=== PATIENT | female | born 1965 | race Caucasian/White ===

== ENCOUNTER 2017-05-03 18:53 | Emergency (ER) ==
[2017-05-03 18:59] VITALS: BP 178/79; TEMP 97.3; BMI 29.5
[2017-05-03 19:09] LABS: BASOPHILS # (AUTO) 0.1 K/uL (0-0.2); BASOPHILS % (AUTO) 0.6 % (0.0-3.0); EOSINOPHILS # (AUTO) 0.2 K/ul (0.0-0.7); EOSINOPHILS % (AUTO) 1.4 % (0.0-7.0); HEMATOCRIT 37.2 % (37.0-47.0); HEMOGLOBIN 11.7 g/dl (12.0-16.0); IMMATURE GRANULOCYTE % (AUTO) 0.3 % (0.0-5.0); LYMPHOCYTES # (AUTO) 1.1 K/uL (0.60-3.4); LYMPHOCYTES % (AUTO) 10.4 (10.0-50.0); MEAN CORPUSCULAR HEMOGLOBIN 26.1 pg (27.0-31.0); MEAN CORPUSCULAR HGB CONC 31.5 (31.8-35.4); MEAN CORPUSCULAR VOLUME 82.9 fl (81.0-99.0); MONOCYTES # (AUTO) 0.6 K/uL (0.4-2.0); MONOCYTES % (AUTO) 5.6 (0-10); NEUTROPHILS # (AUTO) 8.9 K/ul (2.0-6.9); NEUTROPHILS % (AUTO) 81.7; PLATELET COUNT 203 10^3/uL (140-440); RED BLOOD COUNT 4.49 10^6/ul (4.20-5.40); WHITE BLOOD COUNT 10.84 K/ul (4.6-10.2)
--- NOTE | 2017-05-03 19:16 | ED.PDOC ---
General ED Provider: Dr. ALEKSANDR CHAN-ER Chief Complaint: Extremity Swelling/Pain Stated Complaint: the kidney doctor took away my water pills 2 weeks ago because of my low kidney function--now my legs are swollen Time Seen by Physician: 18:55 Mode of Arrival: Walk-In Information Source: Patient Exam Limitations: No limitations Primary Care Provider: MICHELLE TAN Nursing and Triage Documentation Reviewed and Agree: Yes Cardiovascular Complaint Exam - Hypertension Complaint/Exam Onset/Duration: several mos ago Symptoms Are: Still present Aggravating: Reports: None Alleviating: Reports: None Associated Signs and Symptoms: Reports: Swelling. Denies: Chest pain, Vision changes, Anxiety, Recent stress, Headache, Numbness, Tingling, Weakness, Dizziness, Short of air Recent Change in Medications: Yes A/V [place]: No Papilledema Present: No JVD Present: No Carotid Bruit Present: No Femoral Pulses Bounding: Yes Differential Diagnoses: Hypertension, Renal Disease, Other Review of Systems - Review Of Systems Constitutional: Reports: No symptoms Eyes: Reports: No symptoms Ears, Nose, Mouth, Throat: Reports: No symptoms Respiratory: Reports: No symptoms Cardiac: Reports: Edema GI: Reports: No symptoms : Reports: No symptoms Musculoskeletal: Reports: No symptoms Skin: Reports: No symptoms Neurological: Reports: No symptoms Endocrine: Reports: No symptoms Hematologic/Lymphatic: Reports: No symptoms All Other Systems: Reviewed and Negative Past Medical History - Past Medical History Previously Healthy: No Endocrine: Reports: DM 2 Cardiovascular: Reports: Hypertension Respiratory: Reports: Bronchitis Hematological: Reports: None Gastrointestinal: Reports: None Genitourinary: Reports: None, CKD Neuro/Psych: Reports: None Musculoskeletal: Reports: Other Cancer: Reports: None Last Menstrual Period: menopause - Surgical History General Surgical History: Reports: Tubal ligation, Tonsillectomy, Other (KIDNEY STENT) - Family History Family History: Reports: Unknown - Social History Smoking Status: Former smoker Hx Substance Use: No Alcohol Screening: None Lives: With family Physical Exam - Physical Exam Appearance: Well-appearing Eyes: YANNICK, EOMI, Conjunctiva clear ENT: Ears normal, Nose normal, Oropharynx normal Neck: Supple Respiratory: Airway patent, Breath sounds clear, Breath sounds equal, Respirations nonlabored Cardiovascular: RRR, Pulses normal, No rub, No murmur GI/: Soft Musculoskeletal: Edema Skin: Warm Neurological: Sensation intact, Motor intact, Reflexes intact, Cranial nerves intact, Alert, Oriented Psychiatric: Affect appropriate, Mood appropriate Critical Care Note - Critical Care Note Total Time (mins): 0 Course - Course Hematology/Chemistry: 05/03/17 19:03 05/03/17 19:03 Orders, Labs, Meds: Lab Review 05/03/17 05/03/17 19:03 19:03 WBC 10.84 H RBC 4.49 Hgb 11.7 L Hct 37.2 MCV 82.9 MCH 26.1 L MCHC 31.5 L RDW Coeff of Riky 15.1 H Plt Count 203 Immature Gran % (Auto) 0.3 Neut % (Auto) 81.7 Lymph % (Auto) 10.4 [place] % (Auto) 5.6 Eos % (Auto) 1.4 Baso % (Auto) 0.6 Immature Gran # (Auto) 0.0 Neut # 8.9 H Lymph # 1.1 [place] # 0.6 Eos # 0.2 Baso # 0.1 Sodium 145 Potassium 4.0 Chloride 113 H Carbon Dioxide 21 Anion Gap 15.0 BUN 29 H Creatinine 2.30 H Estimated GFR (MDRD) 22.00 BUN/Creatinine Ratio 12.60 Glucose 255 H Calcium 9.3 Total Bilirubin 0.49 AST 14 L ALT 17 Alkaline Phosphatase 85 Total Protein 7.3 Albumin 3.7 Globulin 3.6 Albumin/Globulin Ratio 1.03 Orders Category Date Time Status CBC W/ AUTO DIFF Stat LAB 05/03/17 19:03 Completed COMPREHENSIVE METABOLIC PANEL Stat LAB 05/03/17 19:03 Completed Vital Signs: Temp Pulse Resp BP Pulse Ox 05/03/17 18:54 97.3 F L 74 20 178/79 H 95 PAOLA Risk Score PAOLA Risk Score: Risk Score Odds of by 30D 0 0.1 (0.1-0.2) 1 0.3 (0.2-0.3) 2 0.4 (0.3-0.5) 3 0.7 (0.6-0.9) 4 1.2 (1.0-1.5) 5 2.2 (1.9-2.6) 6 3.0 (2.5-3.6) 7 4.8 (3.8-6.1) Departure - Departure Time of Disposition: 19:37 Disposition: HOME SELF-CARE Discharge Problem: CKD (chronic kidney disease) stage 4, GFR 15-29 ml/min, Edema of lower extremity Instructions: Chronic Kidney Disease (ED), Diabetic Kidney Disease (ED) Condition: Good Pt referred to PMD for follow-up: Yes Additional Instructions: may start bumex 1mg dose--keep legs elevated--keep appt with nephrology this week to closely monitor kidney function Allergies/Adverse Reactions: Allergies No Known Allergies Allergy (Verified 05/03/17 19:00) Home Medications: Ambulatory Orders Insulin Glargine,Hum.rec.anlog [Lantus] 20 unit SUBCUT BEDTIME 05/05/15 Atorvastatin Calcium 40 mg PO BEDTIME 05/03/17 Hydralazine HCl 50 mg PO Q8HR 05/03/17 Metoprolol Succinate 50 mg PO BID 05/03/17 Nifedipine [Procardia Xl] 90 mg PO DAILY 05/03/17 Disposition Discussed With: Patient
[2017-05-03 19:28] LABS: ALBUMIN 3.7 g/dL (3.4-5.0); ALBUMIN/GLOBULIN RATIO 1.03; BILIRUBIN,TOTAL 0.49 mg/dL (0.00-1.20); BUN/CREATININE RATIO 12.6; CALCIUM 9.3 mg/dL (8.2-10.2); CREATININE 2.3 mg/dL (0.60-1.30); TOTAL PROTEIN 7.3 g/dL (6.4-8.2)
== END 2017-05-03 19:43 | disposition home or self-care (01) ==
LOC: ED 18:53
DX: R60.0 Localized edema (principal); I12.9 Hypertensive chronic kidney disease with stage 1 through stage 4 chronic kidney disease, or unspecified chronic kidney disease; E11.22 Type 2 diabetes mellitus with diabetic chronic kidney disease; N18.4 Chronic kidney disease, stage 4 (severe); Z79.4 Long term (current) use of insulin; Z79.899 Other long term (current) drug therapy
CPT/HCPCS: 36415; 80053; 85025; 99282